=== PATIENT | female | born 1950 | race Caucasian/White ===

== ENCOUNTER 2020-04-26 22:15 | Emergency (ER) | payer MEDICARE ==
--- NOTE | 2020-04-27 00:34 | EDM.PDOC ---
ED HPI GENERAL MEDICAL PROBLEM - General Chief Complaint: Lower Extremity Injury/Pain Stated Complaint: FELL AND HURT HER KNEES MORE ON HER LEFT Time Seen by Provider: 04/26/20 23:10 Source of Information: Reports: Patient, Family History Limitations: Reports: No Limitations - History of Present Illness INITIAL COMMENTS - FREE TEXT/NARRATIVE: 69-year-old female with left knee pain after falling. She tripped over a suitcase and landed on her knees, her left knee is now swollen, bruised and painful. It is very difficult to bear any weight and it is impossible to walk more than a couple of steps. No other complaints. Onset: Sudden Duration: Hour(s): (2 hours ago) Location: Reports: Lower Extremity, Left Quality: Reports: Ache, Sharp, Throbbing Worsens with: Reports: Other (Weightbearing causes marked increased pain), Movement left knee Pain Score (Numeric/FACES): 5 - Related Data Allergies Allergy/AdvReac Type Severity Reaction Status Date / Time erythromycin base Allergy Rash Verified 04/26/20 23:26 Penicillins Allergy Hives Verified 04/26/20 23:26 Sulfa (Sulfonamide Allergy Hives Verified 04/26/20 23:26 Antibiotics) Home Meds: Home Meds Amitriptyline [Elavil] 2 tab PO BEDTIME 04/26/20 [History] Escitalopram Oxalate [Lexapro] 1 tab PO DAILY 04/26/20 [History] Losartan [Cozaar] 1 tab PO DAILY 04/26/20 [History] Metoprolol Tartrate 1 tab PO BEDTIME 04/26/20 [History] Thyroid [Orwell Thyroid] 1 tab PO DAILY 04/26/20 [History] hydroCHLOROthiazide [Hydrochlorothiazide] 1 tab PO DAILY 04/26/20 [History] metFORMIN [Glucophage] 2 tab PO BEDTIME 04/26/20 [History] Past Medical History HEENT History: Reports: Impaired Vision Cardiovascular History: Reports: Hypertension Endocrine/Metabolic History: Reports: Diabetes, Type II, Hypothyroidism Oncologic (Cancer) History: Reports: Breast Other Oncologic History: bilaterl - Infectious Disease History Infectious Disease History: Reports: Chicken Pox, Measles, Mumps - Past Surgical History Female Surgical History: Reports: Breast Implant Social & Family History - Tobacco Use Tobacco Use Status *Q: Never Tobacco User - Caffeine Use Caffeine Use: Reports: Tea - Recreational Drug Use Recreational Drug Use: No Review of Systems - Review of Systems Review Of Systems: See Below Constitutional: Denies: Fever Respiratory: Reports: No Symptoms Cardiovascular: Reports: No Symptoms Musculoskeletal: Reports: Joint Pain (Left knee is very painful) Skin: Reports: Bruising (Significant bruising and swelling has developed over the anterior left knee) Neurological: Reports: No Symptoms. Denies: Paresthesia ED EXAM, GENERAL - Physical Exam Exam: See Below Exam Limited By: No Limitations General Appearance: Alert, No Apparent Distress (Looks uncomfortable but not distressed) Head: Atraumatic Respiratory/Chest: No Respiratory Distress Extremities: Other (Exam is otherwise limited to the lower extremities. The left knee has significant ecchymosis anteriorly, swelling, and tenderness to palpation especially laterally. There is no significant tenderness over the proximal fibula. She can straighten the knee against gravity but it is painful.) Course - Vital Signs Last Recorded V/S: Last Vital Signs Temp 97.5 F 04/26/20 23:44 Pulse 95 04/26/20 23:44 Resp 16 04/26/20 23:44 BP 123/84 04/26/20 23:44 Pulse Ox 96 04/26/20 23:44 - Orders/Labs/Meds Orders: Active Orders 24 hr Category Date Time Status Knee 3V Lt [CR] Stat Exams 04/26/20 23:41 Taken DME for Discharge [COMM] Stat Oth 04/27/20 00:29 Ordered DME for Discharge [COMM] Stat Oth 04/27/20 00:30 Ordered - Re-Assessments/Exams Free Text/Narrative Re-Assessment/Exam: 04/27/20 00:33 An x-ray of the left knee was obtained and shows a likely acute fracture of the lateral pole of the patella. A 6 inch Desmond wrap was applied to the knee, a knee immobilizer was fitted and she was given crutches. A copy of the x-ray was given to the patient and she is going to recheck with orthopedics when she returns to the [facility] in 2 to 3 days. She was also given 12 hydrocodone for extra pain control. Departure - Departure Time of Disposition: 00:58 Disposition: Home, Self-Care 01 Clinical Impression: Fracture of left patella Qualifiers: Encounter type: initial encounter Fracture type: closed Fracture morphology: longitudinal Fracture alignment: nondisplaced Qualified Code(s): S82.025A - Nondisplaced longitudinal fracture of left patella, initial encounter for closed fracture - Discharge Information Instructions: Patellar Fracture, Adult Referrals: PCP,None [Primary Care Provider] - Forms: ED Department Discharge Care Plan Goals: Desmond wrap to control swelling, knee immobilizer to control movement and use crutches to avoid significant weightbearing through the weekend. Ice may be helpful as well. A regular dose of ibuprofen or naproxen for pain and add stronger pain medication as prescribed if needed. Consider rechecking with orthopedics when home. Sepsis Event Note (ED) - Evaluation Sepsis Screening Result: No Definite Risk - Focused Exam Vital Signs: Vital Signs Temp Pulse Resp BP Pulse Ox 04/26/20 23:44 97.5 F 95 16 123/84 96 04/26/20 22:52 97.5 F 95 16 123/84 96 - My Orders Last 24 Hours: My Active Orders 04/26/20 23:41 Knee 3V Lt [CR] Stat 04/27/20 00:29 DME for Discharge [COMM] Stat 04/27/20 00:30 DME for Discharge [COMM] Stat - Assessment/Plan Last 24 Hours: My Active Orders 04/26/20 23:41 Knee 3V Lt [CR] Stat 04/27/20 00:29 DME for Discharge [COMM] Stat 04/27/20 00:30 DME for Discharge [COMM] Stat
--- NOTE | 2020-04-29 11:27 | CR ---
Knee 3V Lt CLINICAL HISTORY: Fall, pain FINDINGS: There is moderate prepatellar soft tissue swelling There is a longitudinal linear lucency through the lateral aspect of the patella. There is prominence of the intercondylar eminence. There is also patellar spurring Impression: Longitudinal fracture, lateral patella Osteoarthritis
== END 2020-04-27 00:50 | disposition home or self-care (01) ==
LOC: JP.ED 22:15
DX: S82.025A Nondisplaced longitudinal fracture of left patella, initial encounter for closed fracture (principal); I10 Essential (primary) hypertension; E11.9 Type 2 diabetes mellitus without complications; E03.9 Hypothyroidism, unspecified; Z88.1 Allergy status to other antibiotic agents; Z88.0 Allergy status to penicillin; Z88.2 Allergy status to sulfonamides; Z79.84 Long term (current) use of oral hypoglycemic drugs; W01.0XXA Fall on same level from slipping, tripping and stumbling without subsequent striking against object, initial encounter
CPT/HCPCS: 73562-26-LT; 73562-LT; 99283